=== PATIENT | female | born 1970 | race Caucasian/White ===

== ENCOUNTER → 2019-01-15 | Outpatient (CLI) | payer OTHER | END | disposition home or self-care (01) | LOC: NUCLEAR 07:00 | DX: I20.9 Angina pectoris, unspecified (principal) | CPT/HCPCS: 78452; 93017; A9500 ==

== ENCOUNTER 2022-10-30 08:40 | Outpatient (CLI) | payer OTHER | END 2022-10-30 08:42 | disposition home or self-care (01) | LOC: NUCLEAR 08:40 | PROVIDERS: ATTEND Internal Medicine | DX: R00.2 Palpitations (principal); R07.89 Other chest pain ==

== ENCOUNTER 2023-07-02 05:27 | Day surgery (SDC) | payer OTHER | END 2023-07-02 10:10 | disposition home or self-care (01) | LOC: CIR.AMB 05:27 | PROVIDERS: ATTEND Surgery Surgery of the Hand | DX: M67.843 Other specified disorders of tendon, right hand (principal); M65.841 Other synovitis and tenosynovitis, right hand; M35.89 Other specified systemic involvement of connective tissue; Z20.822 Contact with and (suspected) exposure to COVID-19 ==

== ENCOUNTER 2024-12-15 06:10 | Day surgery (SDC) | payer OTHER ==
[2024-12-15] MEDS ORDERED: CEFAZOLIN SODIUM 1,000 MG VIAL IV SCH (09:30)
== END 2024-12-15 12:45 | disposition home or self-care (01) ==
LOC: CIR.AMB 06:10
PROVIDERS: ATTEND Surgery Surgery of the Hand
DX: M67.843 Other specified disorders of tendon, right hand (principal); H52.209 Unspecified astigmatism, unspecified eye